=== PATIENT | male | born 1930 | race Caucasian/White ===

== ENCOUNTER 2016-08-04 01:03 | Day surgery (SDC) | payer MEDICARE ==
[2016-08-04] VITALS (20 sets, daily range): BP systolic 83–115; BP diastolic 56–73; PULSE 89–101; RESP 15–26; O2SAT 93–98
[~2016-08-04] VITALS: Ht 167.6 cm; Wt 74.0 kg
[~2016-08-04 01:03] MED LIST: ALPR0.254 PO; ASPI325T32 PO; ATRV10T PO; BENZ100C8 PO; CARV3.122 PO; CHOL200025 PO; CYAN500T53 SL; EMLA TOP; FERR-83 PO; GUAI-382 PO; IPRA30SP8 NS; LEVO112T4 PO; NYST1POW23 MC; SODI650T PO; TORS20TA3 PO; ZYL100 PO
[2016-08-04] MEDS ORDERED: 0.9% Sodium Chloride 1,000 ML IV ONE (07:23)
[2016-08-04 09:26] LABS: BASOPHILS % (AUTO) 0.1 % (0-3); EOSINOPHILS % (AUTO) 0.6 % (0-5); MONOCYTES % (AUTO) 10.6 % (4-12); Mean Corpuscular Hemoglobin 31.1 pg (27.0-35.0); Mean Corpuscular Volume 95.7 fL (81-100); NEUTROPHILS % (AUTO) 79.4 % (40-74); Platelet Count 161 bil/L (150-400)
[2016-08-04] MEDS ORDERED: 0.9% Sodium Chloride 2,000 ML ONE (10:11)
[2016-08-04] MEDS ORDERED: Heparin 1,000 Unit/mL 10 mL Inj ONE (10:11)
[2016-08-04] MEDS ORDERED: Nitroglycerin 50,000 mcg/250 mL D5W Premix IV ONE (10:11)
[2016-08-04] MEDS ORDERED: Heparin 1,000 Units/500 mL NS Premix IV ONE (10:11)
[2016-08-04] MEDS ORDERED: fentaNYL-PF 50 mCg/mL 2 mL Inj ONE (10:28)
[2016-08-04] MEDS ORDERED: 0.9% Sodium Chloride 250 ML ONE (10:54)
[2016-08-04] MEDS ORDERED: Adenosine 3 mg/mL 2 mL Inj ONE (10:55)
--- NOTE | 2016-08-04 11:42 | DI95 ---
[address] [address] INTERVENTIONAL CARDIAC CATHETERIZATION PATIENT: CARLY GRAF : 1930 MR#: [id number] ADMIT: 08/04/2016 JOB ID: [id number] DATE: 08/04/2016 PROCEDURE: 1. Selective right and left coronary angiography. 2. Fractional flow reserve of the left anterior descending. 3. Percutaneous intervention on the left anterior descending. INDICATION: Congestive heart failure with LV dysfunction. PROCEDURAL DETAILS: The reader and the coders are referred to the procedure log which enumerates this completely. Briefly, right femoral approach 6-Indian system. Standard Floyd catheters. ANGIOGRAPHIC FINDINGS: 1. Mild calcification of the coronaries is noted on fluoroscopy. 2. Left main: No significant disease. 3. LAD in its mid segment past the major septal branch has an eccentric 60% to 70% lesion. This was assessed by FFR. FFR was 0.78, thereby indicating that this lesion was physiologically significant. The rest of the LAD is free of any significant disease. 4. Circumflex free of any significant disease. 5. Right coronary artery dominant and has mild luminal irregularities. No critical stenosis is noted. 6. Left heart catheterization revealed an LVEDP of 27. There was about a 20 mm gradient upon pullback. INTERVENTIONAL REPORT: We then proceeded ahead with an intervention on the LAD. The lesion was pre-dilated with a 2.0 and then with a noncompliant 3.0 balloon and then stented with a 3.5 x 15 mm bare metal stent delivered at 14 atmospheres with excellent angiographic results. The patient is advised to stay on dual antiplatelet therapy for at least one month post procedure. I am wondering if the echo under estimated the severity of his aortic stenosis. I would like to repeat an echocardiogram both to assess his aortic valve, as well as mitral regurgitation and if there is any improvement in his LV function in about two months. We might even consider doing a dobutamine echo to look for occult low gradient aortic stenosis.
[2016-08-04] MEDS ORDERED: Ondansetron 2 mg/mL 2 mL Inj IVPUSH PRN (17:10)
[2016-08-04] MEDS ORDERED: Atropine 1 mg/10 mL (Code) Syringe IVPUSH PRN (17:10)
[2016-08-04] MEDS ORDERED: Clopidogrel 300 mg Tablet (LOADING DOSE) PO ONE (17:10)
[2016-08-04] MEDS ORDERED: Sodium Chloride LOK Flush 10 mL Syringe IVFLUSH PRN (17:10)
[2016-08-04] MEDS ORDERED: 0.9% Sodium Chloride 250 ML BOLUS IV PRN (17:10)
[2016-08-04] MEDS ORDERED: 0.9% Sodium Chloride 400 ML (4 HRS) IV ONE (17:10)
[2016-08-04] MEDS ORDERED: guaiFENesin 600 mg ER12 Tablet PO PRN (17:25)
[2016-08-04] MEDS ORDERED: ALPRAZolam 0.25 mg Tablet PO PRN (17:25)
--- NOTE | 2016-08-04 17:41 | NUR ---
Admit to PCC Pt up to PCC at 16:00, report received from Yessica Montesinos RN. Pt on bedrest till 17:30, Vitals stable, NS running at 100mls/hr till pt taking fluid PO. Pt denies sob, or CP. Groin site is beginning to show a bruise, but is soft and only slightly tender to palpation, distal pulses are weak but equal and CMS is intact.
[2016-08-04] MEDS ORDERED: Nystatin 100,000 Unit/Gm 15 Gm Powder TOPICAL PRN (18:05)
[2016-08-04] MEDS: Ipratropium 0.03% 30 mL Nasal Spray Bottle NASAL SCH (20:22)
[2016-08-05 02:52] VITALS: BP 95/66; PULSE 90; RESP 18; O2SAT 97
--- NOTE | 2016-08-05 03:28 | NUR ---
GROIN SITE Pt had an uneventful night. Vitals stable, groin site shows no sign of hematoma and dressing is CDI. Pt A&Ox3, SANCHEZ, CMS intact. No other issues noted at this time.
[2016-08-05 04:58] VITALS: PULSE 111
[2016-08-05 08:00] VITALS: PULSE 95
[2016-08-05] MEDS: Ipratropium 0.03% 30 mL Nasal Spray Bottle NASAL SCH (08:30)
[2016-08-05 08:49] VITALS: BP 91/61; PULSE 99; RESP 18; O2SAT 98
--- NOTE | 2016-08-05 11:53 | PCM.PNNEPH ---
Subjective Date of Service Aug 05, 2016 Subjective The patient was unable to go for his dialysis treatment yesterday because she was admitted for cardiac catheterization and stent placement. This morning he states that he feels considerably better and denies any chest pain, shortness of breath, cough, wheezing, nausea or vomiting. Exam Vital Signs Vital Sign - Last Date Time Temp Pulse Resp B/P Pulse Ox O2 Delivery O2 Flow Rate FiO2 08/05/16 08:49 36.3 99 18 91/61 98 Nasal Cannula 0.50 Intake and Output 08/04/16 08/04/16 08/05/16 Cumulative From/Thru 15:00 23:00 07:00 08/04/16 09:06 - 08/05/16 04:58 Intake Total 170 ml 300 ml 470 ml Output Total 200 ml 400 ml 600 ml Balance -30 ml -100 ml -130 ml Intake Oral 0 ml 300 ml 300 ml IV Total 170 ml 170 ml Output Urine Total 200 ml 400 ml 600 ml # Bowel Movements 0 0 Exam Neck is supple without adenopathy, thyromegaly, or jugular venous distention. Lungs are clear to auscultation. Heart is regular with soft systolic murmur. Abdomen soft without any tenderness rebound guarding masses or hepatosplenomegaly. Extremities are negative for any evidence of any clubbing cyanosis or edema. Lab and Diagnostics Result Diagram: 08/04/16 0900 08/05/16 0227 Plan Impression Impression #1 end-stage renal disease dialysis dependent Recommendations #1 the patient dialyzed today for 3 hours, 2 potassium bath, 1500 units of heparin and 500 per hour and will try to take 1-2 L of fluid off. Following his dialysis treatment he can be discharged per cardiology. Harpreet Arauz DO Aug 05, 2016 11:53
[2016-08-05 11:55] VITALS: BP 91/64; PULSE 71; RESP 18; O2SAT 94
--- NOTE | 2016-08-05 12:02 | PCM.DIMED ---
Discharge Instructions Date of Service Aug 05, 2016 Dates of Hospitalization 08/04/2016 Discharge Diagnosis Discharge Diagnosis CAD, s/p BMS placement to LAD, ischemic cardiomyopathy, ESRD on hemodialysis Medication Instructions Please take all medications as prescribed. Make sure that you take Clopidogrel ( Plavix ) every day for at least one month for sure. Diet Low fat, Low Sodium, Heart Healthy, Renal Diet Activity Other (See bellow) Call your provider Shortness of breath, Bleeding, Chest pain Patient Instructions Please do not drive car for couple of days Follow-up plan Please do not drive the car couple of days, you can take shower starting from today, do not soak in bath tub for one week, no heavy lifting no more than 7-10 lb for one week and generally avoid heavy lifting; otherwise be physically active as tolerated. Provider: Vito Garcia MD Follow-up in: 3 weeks Mahesh Pompa PA-C Aug 05, 2016 12:02
[2016-08-05] MEDS ORDERED: CLOP75TA28 PO ×2 (12:05→12:11)
--- NOTE | 2016-08-05 12:06 | PCM.DC.MED ---
Discharge Summary Date of Service Aug 05, 2016 Dates of Hospitalization Date of Hospital Admission 08/04/2016 Date of Discharge: Aug 05, 2016 Providers: Admitting Physician: Primary Care Physician: Harpreet Arauz DO Attending Physician: Vito Garcia MD Diagnosis at Time of Discharge Diagnosis at Time of Discharge CAD, s/p BMS placement to LAD, ischemic cardiomyopathy, ESRD on hemodialysis Brief History This is a very pleasant 85 y/o gentleman with ischemic cardiomyopathy, ESRD on dialysis who was scheduled for elective cardiac cath which was done 0n 2016. Hospital Course On 08/04/2016 the patient had cardiac cath with percutaneous intervention on the left anterior descending with bare-metal stent placement. The patient tolerated procedure well. He tells me today that when he was walking in the room, it looks like his LILLY is better, he denies having any chest discomfort; Right groin area (site of cardiac cath entry) is nontender with palpation, has small hematoma, no bleeding. On telemetry: sinus rhythm with HR in 70s He is going to have dialysis today. I explained the patient that he needs to take Plavix (Clopidgrel) every day at least one month. Exam Vital Signs (Last) Date Time Temp Pulse Resp B/P Pulse Ox O2 Delivery O2 Flow Rate FiO2 08/05/16 11:55 36.6 71 18 91/64 94 Room Air 08/05/16 08:49 0.50 Exam General: no acute distress ENT: MMM, sclera anicteric Neck: supple, no thyromegaly Pulmo: slightly decreased breathing sounds with basilar crackles on the right side. Cardio: RRR, systolic murmur 1/6 on base, and systolic murmur 1/6 on PMI. Abdomen: nontender with palpation. Extremities: no LE edema. Neuro: A&O x3, no gross abnormalities. Test 08/04/16 09:00 08/05/16 02:27 White Blood Count 8.6th/mm3 (3.8-10.1) Red Blood Count 3.70mil/mm3 (4.40-5.80) Hemoglobin 11.5g/dL (13.8-17.2) Hematocrit 35.4% (41.0-50.0) Mean Corpuscular Volume 95.7fL (81-100) Mean Corpuscular Hemoglobin 31.1pg (27.0-35.0) Mean Corpuscular Hemoglobin Concent 32.5% (32.0-37.0) Red Cell Distribution Width 16.8% (12.3-15.4) Platelet Count 161bil/L (150-400) Neutrophils (%) (Auto) 79.4% (40-74) Lymphocytes (%) (Auto) 8.9% (14-46) Monocytes (%) (Auto) 10.6% (4-12) Eosinophils (%) (Auto) 0.6% (0-5) Basophils (%) (Auto) 0.1% (0-3) Sodium Level 135mEq/L (134-144) Potassium Level 5.2mEq/L (3.5-5.2) Chloride Level 97mEq/L (97-108) Carbon Dioxide Level 18mmol/L (18-29) Blood Urea Nitrogen 90mg/dL (8-27) Creatinine 4.31mg/dL (0.76-1.27) Estimat Glomerular Filtration Rate 14mL/min (>59) Glucose Level 102mg/dL (60-99) Calcium Level 8.6mg/dL (8.5-10.1) Discharge Medications Discharge Medications ([EMLA Cream]) 1 APPLIC TOP 30-45min before HD (Reported) Allopurinol (Allopurinol) 100 Mg Tablet 100 MG PO DAILY (Reported) Aspirin (Aspirin) 325 Mg Tablet 325 MG PO DAILY (Reported) Atorvastatin (Lipitor) 10 Mg Tab 10 MG PO HS (Reported) Carvedilol (Carvedilol) 3.125 Mg Tablet 3.125 MG PO BID (Reported) Clopidogrel (Clopidogrel) 75 Mg Tablet 75 MG PO DAILY Prescribed by: PORSCHE SYKES Cyanocobalamin (Vitamin B-12) (Vitamin B-12) 500 Mcg Tab.subl 500 MCG SL DAILY ( Reported) Ferrous Sulfate (Ferrous Sulfate) 325 Mg Tablet 325 MG PO BID (Reported) Ipratropium [place] (Ipratropium [place] 0.03% Nasal) 30 Ml [place] 2 SPRAY NS TID (Reported) Levothyroxine (Levothyroxine) 112 Mcg Tablet 112 MCG PO DAILY (Reported) Sodium Bicarbonate (Sodium Bicarbonate) 650 Mg Tablet 650 MG PO BID (Reported) Torsemide (Torsemide) 20 Mg Tablet 30 MG PO DAILY (Reported) As needed Alprazolam (Alprazolam) 0.25 Mg Tablet 0.25 MG PO HS PRN PRN For Insomnia ( Reported) Benzonatate (Benzonatate) 100 Mg Capsule 100 MG PO TID PRN PRN For Cough ( Reported) Guaifenesin/Pseudoephedrne HCl (Mucinex D ER 1,200-120 mg Tab) 1 Each Tab.er.12h 1 EACH PO Q12H PRN PRN PRN (Reported) Miscellaneous Medications Cholecalciferol (Vitamin D3) (Vitamin D3) 2,000 Unit Tablet 2,000 UNIT PO ( Reported) Nystatin (Nystatin) 1 Each Powder.ea. 1 EACH MC (Reported) Additional med instructions Please take all medications as prescribed. Make sure that you take Clopidogrel ( Plavix ) every day for at least one month for sure. Followup Plan Follow-up plan Please do not drive the car couple of days, you can take shower starting from today, do not soak in bath tub for one week, no heavy lifting no more than 7-10 lb for one week and generally avoid heavy lifting; otherwise be physically active as tolerated. Discharge Diet: Low fat, Low Sodium, Heart Healthy, Renal Diet Discharge Activity: Other (See bellow) Patient Instructions Please do not drive car for couple of days Provider: Vito Garcia MD Follow-up in: 3 weeks Mahesh Pompa PA-C Aug 05, 2016 12:06
--- NOTE | 2016-08-05 13:29 | NUR ---
Pt discharge Reviewed discharge instruction with patient and patient's . Both verbalized understanding. pt discharged to [facility] for dialysis with instructions and prescription via bed. IV and telemetry previously discontinued. Report given to [facility] RN.
[2016-08-05 13:44] VITALS: BP 98/66; PULSE 71
--- NOTE | 2016-08-05 16:23 | NUR ---
Transfer to [facility] Patient transported by bed to [facility] for inpatient dialysis. Report received from Colleen Doe RN. verbalized an understanding of discharge instructions.
--- NOTE | 2016-08-05 17:05 | NUR ---
Dialysis note: 3 hours tx 2000 ml net UF Left lower arm AV fistula Pls see DTR for VS details Qb 200-350 Heparin given O2 @ 2L via NC Tolerated tx, slept at intervals Fistula needle sites clotted in 10 min Report given to Kasandra Deluna RN Stable condition at end of tx
--- NOTE | 2016-08-05 17:32 | NUR ---
Discharge Patient completed dialysis. Discharge education provided from primary RN, Colleen Doe. Patient transported , with his belongings, to private vehicle by wheelchair. Accompanied with .
== END 2016-08-05 17:05 | disposition home or self-care (01) ==
LOC: SOUO 01:03 → PCC 16:38 → MOC 08-05 13:55 → SOUO 08-05 17:05
PROVIDERS: ATTEND Internal Medicine Cardiovascular Disease
DX: I25.10 Atherosclerotic heart disease of native coronary artery without angina pectoris (principal); I13.2 Hypertensive heart and chronic kidney disease with heart failure and with stage 5 chronic kidney disease, or end stage renal disease; N18.6 End stage renal disease; I50.22 Chronic systolic (congestive) heart failure; I25.5 Ischemic cardiomyopathy; Z99.2 Dependence on renal dialysis; E03.9 Hypothyroidism, unspecified; Z79.02 Long term (current) use of antithrombotics/antiplatelets; Z87.891 Personal history of nicotine dependence
CPT/HCPCS: 36415; 80048; 85025; 92928; 93005; 93458; 93571; 99152; 99153; C1725; C1769; C1876; C1887; J0153; J1200; J1644; J2250; J3010; J7030; J7050

== ENCOUNTER 2016-08-24 00:17 | Day surgery (SDC) | payer MEDICARE ==
[~2016-08-24] VITALS: Ht 167.6 cm; Wt 75.0 kg
[2016-08-24] VITALS (9 sets, daily range): BP systolic 81–98; BP diastolic 51–65; PULSE 86–95; RESP 16–18; O2SAT 92–96
[~2016-08-24 00:17] MED LIST changes: +CLOP75TA28 PO
[2016-08-24] MEDS ORDERED: Heparin 1,000 Unit/mL 10 mL Inj ONE (13:06)
[2016-08-24] MEDS ORDERED: Heparin 5,000 Units/500 mL NS Premix IV ONE (13:06)
[2016-08-24] MEDS ORDERED: fentaNYL-PF 50 mCg/mL 2 mL Inj ONE (13:52)
--- NOTE | 2016-08-24 15:10 | NUR ---
pT RECEIVED FROM INTERNAL MEDICINE PHYSICIAN ASSISTANT IN STABLE CONDITION.hEMATOMA NOTED LEFT LOWER FISTULA, DR COTTON CALLED OVER TO EVALUATE.HEMATOMA HAS REMAINED STABLE THORUGHOUT CASE, POSITIVE BRUIT THRILL IN THAT AREA OF FISTULA SITE.PHYSICIAN ATTEMPTED TWICE IN THAT LOCATION. THIRD LOCATION THROUGH WHICH PROCEDURE WAS DONE NOW HAS A PURSESTRING IN PLACE., REINFORCED WITH GAUZE SO IT WILL STAND UP INSTEAD OF LEANING, PER PHYSICIAN PREFERENCE.
--- NOTE | 2016-08-24 15:40 | DRSVH ---
PROCEDURE: AV FISTULA INDICATIONS: ESRD COMPARISON: None. Technique: Fluoroscopy time: 4.8 minutes. 1. Retrograde access to the venous outflow left upper extremity fistula. 2. Fistulogram performed in stations to the level of the SVC. 3. Reflux fistulogram. 4. Balloon angioplasty of a focal high-grade stenosis in the venous outflow. 5. Completion fistulogram. The indications, alternatives, benefits, risks, and complications of the procedure were explained to the patient.. Informed written consent was obtained and placed in the chart. The patient was mitul t to the angiography suite, and conscious sedation was administered intravenously by jail staff, while continuous cardiorespiratory monitoring was performed. Maximum sterile barrier technique was employed per standard protocol, including hand hygiene, cap, ma sk, sterile gown and gloves, and 2% chlorhexidine. Sterile ultrasound probe cover was also utilized. 1% lidocaine was used to anesthetize the skin over the area of interest. Under ultrasound guidance using a micropuncture kit, the midportion of the venous outflow was accessed in a retrograde fashion. An 035 wire was advanced peripherally with the tip in the radial artery. The micropuncture sheath wa s exchanged for a short 6 Urdu sheath. Fistulogram was performed to the level of the SVC and reflux fistulogram was performed at the arteriovenous anastomosis. Balloon angioplasty was then performed w ith a 4 mm x 40 mm high-pressure balloon in the distal portion of the venous outflow. Completion fist ulogram was performed. FINDINGS: Initial fistulogram demonstrates a focal high-grade stenosis within the peripheral portion of the venous outflow just central to the arteriovenous anastomosis. After balloon angioplasty, ther e is complete resolution of this high-grade stenosis with prompt flow of contrast centrally. The sherwin riovenous anastomosis is widely patent. There no central stenoses or occlusion. A nonocclusive filling defect is present within the outflow vein at the level of the antecubital whit a suggesting the presence of nonocclusive thrombus. IMPRESSION: 1. Status post balloon angioplasty and complete resolution of a focal high-grade stenosis in the caleb pheral portion of the venous outflow the left upper extremity fistula. 2. Small amount of nonocclusive thrombus within the outflow vein at the level of the antecubital whit a. Given the patient's age and nonocclusive nature of the thrombus, no thrombolysis was performed at this time. Dictated by: María Soto M.D. on 08/24/2016 at 15:35 Approved by: María Soto M.D. on 08/24/2016 at 15:39
== END 2016-08-24 23:59 | disposition home or self-care (01) ==
LOC: SOUO 00:17
PROVIDERS: ATTEND Radiology Vascular & Interventional Radiology
DX: I87.1 Compression of vein (principal); I82.612 Acute embolism and thrombosis of superficial veins of left upper extremity; I13.11 Hypertensive heart and chronic kidney disease without heart failure, with stage 5 chronic kidney disease, or end stage renal disease; N18.6 End stage renal disease; Z99.2 Dependence on renal dialysis; N13.1 Hydronephrosis with ureteral stricture, not elsewhere classified; E03.9 Hypothyroidism, unspecified
CPT/HCPCS: 36902; 99152; 99153; C1725; C1769; C1894; J1644; J2250; J3010; Q9967